=== PATIENT | female | born 1930 | race Caucasian/White ===

== ENCOUNTER 2020-03-15 10:08 | Emergency (ER) | payer MEDICARE ==
[2020-03-15] MEDS ORDERED: Kenalog-40 IM ONE (10:44)
--- NOTE | 2020-03-15 10:46 | ERPHSYRPT ---
- History of Present Illness Time Seen by Provider: 03/15/20 10:25 Source: patient Exam Limitations: no limitations Patient Subjective Stated Complaint: L knee pain Triage Nursing Assessment: pt to ED c/o chronic L knee pain. states she doctors in [place] but that they were out today. rates 0/10 pain currently but reports pain increases with ambulation. unable to give pain score. also reports she gets shots for knee with that Dr but unsure what that shot is. back to ED in but ambulated from restroom to bed with cane with 1 assist. lives alone and ambulates with walker at home. Physician History: 89 years old female with history of osteoarthritis presented in the ER with chief complaint of left knee pain moderate intensity, sharp in nature with ambulation and better with resting, without any associated recent fall trauma or swelling reported. Patient follows up with [facility] but today they are out and wants a steroid shot which she gets there all the time and sometimes also get intra-articular injections. Patient denies any pain currently at resting. No fever or chills reported. Allergies/Adverse Reactions: UNOBTAINABLE Allergy (Unverified 03/15/20 11:08) pt states she does have an allergy but she does not know what it is Home Medications: Ezetimibe 10 mg [Zetia 10 MG] 10 mg PO DAILY 11/18/14 [History] Hx Tetanus, Diphtheria Vaccination/Date Given: No Hx Influenza Vaccination/Date Given: Yes Hx Pneumococcal Vaccination/Date Given: Yes Travel Risk - International Travel Have you traveled outside of the country in past 3 weeks: No - Coronavirus Screening Are you exhibiting any of the following symptoms?: No Close contact with a COVID-19 positive Pt in past 14-21 Days: No - Review of Systems Constitutional: No Symptoms Eyes: No Symptoms Ears, Nose, & Throat: No Symptoms Respiratory: No Symptoms Cardiac: No Symptoms Abdominal/Gastrointestinal: No Symptoms Musculoskeletal: Arthralgias Skin: No Symptoms Endocrine: No Symptoms Immunological/Allergic: No Symptoms - Past Medical History Pertinent Past Medical History: Yes Cardiac History: Hypertension Musculoskeletal History: Arthritis, Degenerative Disk Disease, Osteoarthritis, Osteoporosis - Past Surgical History Past Surgical History: No - Social History Smoking Status: Never smoker Exposure to second hand smoke: No Drug Use: none Patient Lives Alone: Yes - Female History Hx Now: No - Nursing Vital Signs Nursing Vital Signs: Initial Vital Signs Temperature 98.2 F 03/15/20 10:32 Pulse Rate 76 03/15/20 10:32 Respiratory Rate 18 03/15/20 10:32 Blood Pressure 174/76 03/15/20 10:32 O2 Sat by Pulse Oximetry 97 03/15/20 10:32 Pain Scale Pain Intensity 0 - Physical Exam General Appearance: no apparent distress, alert Neck Exam: normal inspection, supple, full range of motion Cardiovascular/Respiratory Exam: normal breath sounds, regular rate/rhythm Back Exam: normal inspection Knees Exam: bilateral knee: non-tender, normal inspection, normal range of motion Ankle Exam: bilateral ankle: non-tender, normal inspection, normal range of motion Neuro/Tendon Exam: normal sensation Mental Status Exam: alert, oriented x 3, cooperative Skin Exam: normal color SpO2 Interpretation: normal SpO2: 97 O2 Delivery: Room Air Ordered Tests: Active Orders 24 hr Category Date Time Status KNEE (3 VIEWS) Stat Exams 03/15/20 11:02 Completed Medication Summary Discontinued Medications Generic Name Dose Route Start Last Admin Trade Name Johnathan PRN Reason Stop Dose Admin Triamcinolone Acetonide 40 mg 03/15/20 10:44 03/15/20 11:13 Kenalog-40 IM 03/15/20 10:45 40 mg 1XONLY ONE Administration Triamcinolone Acetonide Confirm 03/15/20 11:12 Kenalog-40 Administered 03/15/20 11:13 Dose 40 mg .ROUTE .STK-MED ONE - Progress Progress: unchanged Progress Note: 03/15/20 14:31 She is given IM Kenalog shot. X-rays are negative for any acute findings. Recommended outpatient follow-up with her doctor. 03/15/20 14:32 Counseled pt/family regarding: diagnosis, need for follow-up, rad results - Departure Departure Disposition: Home Clinical Impression: Arthritis of knee, left Condition: Stable Critical Care Time: No Referrals: MIGUEL A GUAN Jr. [Primary Care Provider] - Follow Up with PCP/3 days Instructions: Knee Pain (DC) Additional Instructions: Take Tylenol as needed. Follow-up with your primary care/pain management for reevaluation. Continue using walker all the time for ambulation. Return to ER for worsening pain swelling redness/difficulty ambulation.
[2020-03-15] MEDS ORDERED: Kenalog-40 ONE (11:12)
--- NOTE | 2020-03-15 11:33 | XRAY ---
Indication: Pain. No known injury. Comparison: None 3 view left knee demonstrates mild osteopenia, medial/lateral degenerative arthropathy with chondrocalcinosis, posterior fabella, punctate patella tendon calcifications from old injury/inflammation, and scattered vascular calcifications. No other bony, articular, or soft tissue abnormalities.
[2020-03-15 12:07] VITALS: BP 147/68; PULSE 60
[2020-03-15 14:32] VITALS: O2SAT 97
== END 2020-03-15 12:13 | disposition home or self-care (01) ==
LOC: ED 10:08
DX: M17.12 Unilateral primary osteoarthritis, left knee (principal); I10 Essential (primary) hypertension; M81.0 Age-related osteoporosis without current pathological fracture
CPT/HCPCS: 73562; 96372; 99284; J3301